=== PATIENT | male | born 1970 | race American Indian/Alaskan Native ===

== ENCOUNTER 2021-04-24 23:25 | Emergency (ER) | payer SELFPAY | END 2021-04-24 23:30 | disposition left against medical advice (07) | LOC: ED 23:25 ==

== ENCOUNTER 2021-09-08 14:33 | Emergency (ER) | payer SELFPAY ==
[2021-09-08] MEDS ORDERED: NALOXONE 0.4 MG/1 ML INJ ONE (14:37)
[2021-09-08] MEDS ORDERED: NALOXONE 2 MG/2 ML INJ IV ONE (14:38)
[2021-09-08] MEDS ORDERED: SODIUM CHLORIDE 0.9% 1000 ML 1,000 ML IV ONE (14:39)
--- NOTE | 2021-09-08 14:41 | Event Note ---
ED Screening Note ED Screening Note: unresponsive in triage line placed narcan ordered presumed OD on heroin per staff physical therapist This initial assessment/diagnostic orders/clinical plan/treatment(s) is/are subject to change based on patients health status, clinical progression and re- assessment by fellow clinical providers in the ED. Further treatment and workup at subsequent clinical providers discretion. Patient/guardian urged not to elope from the ED as their condition may be serious if not clinically assessed and managed. Initial orders include: to ER
[2021-09-08 15:10] LABS: Basophils # (Auto) 0.1 K/mm3 (0.0-0.1); Basophils % (Auto) 0.6 % (0.0-1.8); Eosinophils # (Auto) 0.1 K/mm3 (0.0-0.4); Eosinophils % (Auto) 0.6 % (0.0-4.3); Hematocrit 43.7 % (35.5-45.6); Hemoglobin 13.9 gm/dl (11.8-15.2); Lymphocytes # (Auto) 2.4 K/mm3 (1.2-5.4); Lymphocytes % (Auto) 19.3 % (13.4-35.0); Mean Corpuscular HGB Conc 32 % (32-34); Mean Corpuscular Volume 94 fl (84-94); Monocytes # (Auto) 1.5 K/mm3 (0.0-0.8); Monocytes % (Auto) 12.1 % (0.0-7.3); Platelet Count 236 K/mm3 (140-440); Red Blood Count 4.65 M/mm3 (3.65-5.03); Red Cell Distribution Width 14.6 % (13.2-15.2)
[2021-09-08 15:33] LABS: Alanine Aminotransferase 11 units/L (7-56); Albumin 4.4 g/dL (3.9-5); BUN/Creatinine Ratio 12; Blood Urea Nitrogen 16 mg/dL (9-20); Calcium 8.8 mg/dL (8.4-10.2); Hemolysis Index 8
--- NOTE | 2021-09-08 16:52 | Emergency Department Report ---
History of Present Illness - General Chief Complaint: Altered Mental Status Stated Complaint: OD Time Seen by Provider: 09/08/21 14:37 Source: family Mode of arrival: Wheelchair Limitations: No Limitations - History of Present Illness Initial Comments: Patient is a 50-year-old F M[place] male with no significant past medical history is presenting with altered mental status. Patient was lethargic with pinpoint pupils in the waiting room. Patient given Narcan and after coming to the patient admits to taking 80 mg of methadone recreationally. This is not his medication. He took this in order to get high. He denies any homicidal suicidal ideations. Complaint: intentional overdose - Related Data Allergies Allergy/AdvReac Type Severity Reaction Status Date / Time No Known Allergies Allergy Unverified 09/08/21 16:36 ED Review of Systems ROS: Stated complaint: OD Other details as noted in HPI Comment: All other systems reviewed and negative ED Physical Exam - General Limitations: No Limitations General appearance: alert, in no apparent distress - Head Head exam: Present: atraumatic, normocephalic - Eye Eye exam: Present: normal appearance, PERRL, EOMI - ENT ENT exam: Present: mucous membranes moist - Neck Neck exam: Present: normal inspection - Respiratory Respiratory exam: Present: normal lung sounds bilaterally. Absent: respiratory distress, wheezes, rales, rhonchi - Cardiovascular Cardiovascular Exam: Present: regular rate, normal rhythm. Absent: systolic murmur, diastolic murmur, rubs, gallop - GI/Abdominal GI/Abdominal exam: Present: soft, normal bowel sounds. Absent: distended, tenderness, guarding, rebound - Rectal Rectal exam: Present: deferred - Extremities Exam Extremities exam: Present: normal inspection - Back Exam Back exam: Present: normal inspection - Neurological Exam Neurological exam: Present: alert, oriented X3 - Psychiatric Psychiatric exam: Present: normal affect, normal mood - Skin Skin exam: Present: warm, dry, intact, normal color. Absent: rash ED Medical Decision Making - Lab Data Result diagrams: 09/08/21 14:52 09/08/21 14:45 - Medical Decision Making Patient monitored in is feeling well. Has had no further decrease in his mental status. To believe patient safe for discharge. Critical care attestation.: If time is entered above; I have spent that time in minutes in the direct care of this critically ill patient, excluding procedure time. ED Disposition Clinical Impression: Opiate overdose Disposition: 01 HOME / SELF CARE / HOMELESS Is pt being admited?: No Does the pt Need Aspirin: No Condition: Stable Instructions: Intentional Drug Overdose, Opioid Overdose Time of Disposition: 16:52
[2021-09-08 18:07] VITALS: BP 132/96
[2021-09-08] MEDS ORDERED: NALOXONE 0.4 MG/1 ML INJ IV PRN (18:11)
--- NOTE | 2021-09-09 11:20 | Electrocardiograph Report ---
[facility] Test Date: 2021-09-08 Test Time: 15:43:26 Pat Name: BETTIE DIMAS Department: Room: Gender: M Insole Buffer: MAUREEN : 1970 Requested By: ESTEFANI SLADE Order Number: [id number] Reading MD: Ruby Gonzalez Measurements Intervals [place] Rate: 97 P: 66 TX: 134 QRS: -14 QRSD: 89 T: 25 QT: 347 QTc: 438 Interpretive Statements Sinus rhythm ST depression, consider lateral ischemia or acute posterior infarct, clinical correlation is recommended No previous ECG available for comparison Electronically Signed On 09-09-2021 11:20:12 EST by Ruby Gonzalez
== END 2021-09-08 18:08 | disposition home or self-care (01) ==
LOC: ED 14:33
DX: T40.3X2A Poisoning by methadone, intentional self-harm, initial encounter (principal); Y92.89 Other specified places as the place of occurrence of the external cause
CPT/HCPCS: 36415; 80053; 85025; 93005; 96374; 99283; J2310; J7030

== ENCOUNTER 2022-04-08 20:21 | Emergency (ER) | payer SELFPAY ==
[2022-04-08 20:35] VITALS: BP 99/55
--- NOTE | 2022-04-08 21:41 | Emergency Department Report ---
ED General Adult HPI - General Chief complaint: Overdose Stated complaint: im fine PUI?: No Time Seen by Provider: 04/08/22 21:03 Source: patient, EMS ( EMS documentation not available at time of chart dictation ), RN notes reviewed Mode of arrival: Ambulatory Limitations: No Limitations - History of Present Illness Initial comments: The patient was evaluated in the emergency department for symptoms described in the history of present illness. He/she was evaluated in the context of the global COVID-19 pandemic, which necessitated consideration that the patient might be at risk for infection with the virus that causes COVID-19. Institutional protocols and algorithms that pertain to the evaluation of patients at risk for COVID-19 are in a state of rapid change based on information released by regulatory bodies including the CDC and federal and state organizations. These policies and algorithms were followed during the patient's care in the emergency department. Please note that these policies, procedures and recommendations changed on a rapid basis. This patient is a 51-year-old gentleman, who has a history of accidental recreational heroin overdoses, presents to the ER today via EMS, with an EMS articulated complaint of possible heroin overdose. As per report from charge nurse, who in turn received report from EMS, EMS gave 2 mg of Narcan while the patient was sleepy. The patient was reportedly slumped over on the porch, and the neighbors called. The patient denies homicidality and suicidality. He denies physical pain. He denies coingestions. He reports that he typically snorts heroin. He denies additional injuries and complaints. He is asking to leave. -: This evening Consistency: now resolved - Related Data Previous Rx's Medication Instructions Recorded Last Taken Type Naloxone HCl [Narcan Nasal [place]] 4 mg NS PRN PRN #1 spray 04/08/22 Unknown Rx Allergies Allergy/AdvReac Type Severity Reaction Status Date / Time No Known Allergies Allergy Unverified 09/08/21 16:36 ED Review of Systems ROS: Stated complaint: POSS OD Other details as noted in HPI Comment: All other systems reviewed and negative ED Past Medical Hx - Medications Home Medications: Home Medications Medication Instructions Recorded Confirmed Last Taken Type Naloxone HCl [Narcan Nasal [place]] 4 mg NS PRN PRN #1 spray 04/08/22 Unknown Rx ED Physical Exam - General Limitations: No Limitations General appearance: alert, in no apparent distress - Head Head exam: Present: atraumatic, normocephalic - Eye Eye exam: Present: normal appearance, EOMI. Absent: nystagmus - ENT ENT exam: Present: normal exam, normal orophraynx, mucous membranes moist, normal external ear exam - Neck Neck exam: Present: normal inspection, full ROM. Absent: tenderness, meningismus - Respiratory Respiratory exam: Present: normal lung sounds bilaterally. Absent: respiratory distress, wheezes, rales, rhonchi, stridor, decreased breath sounds - Cardiovascular Cardiovascular Exam: Present: regular rate, normal rhythm, normal heart sounds. Absent: bradycardia, tachycardia, irregular rhythm, systolic murmur, diastolic murmur, rubs, gallop - GI/Abdominal GI/Abdominal exam: Present: soft. Absent: distended, tenderness, guarding, rebound, rigid, pulsatile mass - Rectal Rectal exam: Present: deferred - Extremities Exam Extremities exam: Present: normal inspection, full ROM, other (2+ pulses noted in the bilateral upper extremities. There is no long bony tenderness. The muscular compartments are soft.) - Back Exam Back exam: Present: normal inspection. Absent: tenderness, CVA tenderness (R), CVA tenderness (L), paraspinal tenderness, vertebral tenderness - Neurological Exam Neurological exam: Present: alert, oriented X3, normal gait, other (No facial droop. Tongue midline. Extraocular movements intact bilaterally. Facial sensation intact to light touch in V1, V2, V3 distribution bilaterally. 5 and a 5 strength in 4 extremities. Sensation intact to light touch in 4 extremities.). Absent: motor sensory deficit - Psychiatric Psychiatric exam: Present: normal affect, normal mood. Absent: homicidal ideation, suicidal ideation - Skin Skin exam: Present: warm, dry, intact, normal color. Absent: rash ED Course Vital Signs 04/08/22 20:34 Temperature 97.6 F Pulse Rate 72 Respiratory 16 Rate Blood Pressure 99/55 [Right] O2 Sat by Pulse 100 Oximetry - Pulse Oximetry Interpretation Digit-Finger Initial Pulse Oximetry Readin O2 Sat by Pulse Oximetry: 99 Actions Taken: none ED Medical Decision Making - Lab Data Vital Signs 04/08/22 20:34 Temperature 97.6 F Pulse Rate 72 Respiratory 16 Rate Blood Pressure 99/55 [Right] O2 Sat by Pulse 100 Oximetry - Medical Decision Making Differential diagnosis, including but not limited to: Opioid overdose Assessment and plan: 51-year-old gentleman, who is awake, alert, oriented, sober, ambulatory with a steady gait, and of sound mind, who currently exhibits decision-making capacity, presenting with a currently resolved opioid overdose. I recommended observation in the emergency room, with appropriate screening laboratory studies. The patient is refusing/declining evaluation at this time. He is awake, alert, oriented, sober, of sound mind and exhibits decision-making capacity. Risks of leaving AGAINST MEDICAL ADVICE, including , disability, paralysis, respiratory arrest are discussed with the patient, who verbalizes understanding, and articulation in his own words. He is counseled to abstain from recreational drug consumption, he will be given a Narcan prescription. He is advised that he may return to the emergency room right away if and when he changes his mind. Critical care attestation.: If time is entered above; I have spent that time in minutes in the direct care of this critically ill patient, excluding procedure time. ED Disposition Clinical Impression: Opioid overdose Disposition: 07 LEFT AGAINST MEDICAL ADVICE Is pt being admited?: No Does the pt Need Aspirin: No Condition: Undetermined Additional Instructions: As we discussed, you have left the hospital/emergency room AGAINST MEDICAL ADVICE. By leaving, you risked , disability, paralysis, permanent loss of quality of life. The ER is open 24 hours a day, 7 days a week. It never closes. Please return to the emergency room right away if and when you change your mind. If you decide not to return to the emergency room, please follow-up with the listed physician referrals as soon as possible. Do not drive or operate motor vehicles for the next 6 months, or until cleared to do so by her primary care doctor. Abstain from consumption of alcohol, tobacco, smoke products and recreational drugs such as heroin/opioids. Referrals: [facility] Health Depart [Outside] - [facility] [Outside] - [facility] [Provider Group] - [facility] Forms: AMA Form
== END 2022-04-08 22:05 | disposition left against medical advice (07) ==
LOC: ED 20:21
DX: T40.1X1A Poisoning by heroin, accidental (unintentional), initial encounter (principal); Y92.89 Other specified places as the place of occurrence of the external cause
CPT/HCPCS: 99283

== ENCOUNTER 2022-07-31 20:47 | Emergency (ER) | payer SELFPAY ==
[2022-07-31 20:52] VITALS: BP 94/44
[2022-07-31 22:02] LABS: Basophils # (Auto) 0.1 K/mm3 (0.0-0.1); Eosinophils # (Auto) 0.1 K/mm3 (0.0-0.4); Eosinophils % (Auto) 1.7 % (0.0-4.3); Monocytes # (Auto) 0.9 K/mm3 (0.0-0.8); Monocytes % (Auto) 11.7 % (0.0-7.3)
== END 2022-07-31 23:59 | disposition home or self-care (01) ==
LOC: ED 20:47
DX: Z13.30 Encounter for screening examination for mental health and behavioral disorders, unspecified (principal); Z53.21 Procedure and treatment not carried out due to patient leaving prior to being seen by health care provider
CPT/HCPCS: 36415; 80048; 80320; 85025; G0480